=== PATIENT | female | born 1945 | race Caucasian/White ===

== ENCOUNTER → 2017-04-12 | Outpatient (CLI) | payer MEDICARE ==
[~2017-04-12] MED LIST: ALBUTEROL17 G1; ALBUTEROL17 GM INH; ALBUTEROL17 GM NEB; ALVESCO6.1 G1; AUGMENTIN PO; CEFDINIR300 MG PO; CITRACAL + D CA1 TA1 PO; DILTIAZEM 24HR120 MG PO; EXCEDRIN EXTRA1 TAB PO; HYDROCODONE/HO240 ML PO; MAIL ORDER PHARMACY; MEDROL PO; MEDROL4 MG/DOSE- PO; MUCINEX PO; NASACORT AQ16.5 GM; NASONEX17 GM; NYSTATIN5 ML; NYSTATIN5 ML PO; OMEPRAZOLE20 M1 PO; OMEPRAZOLE20 M2 PO; PRAVACHOL; PRAVASTATIN SOD20 MG PO; PREDNISONE; PREDNISONE PO; PREDNISONE5 M1 PO; PRILOSEC; PRILOSEC PO; PRINIVIL20 M1 PO; PROPRANOLOL PO; SINGULAIR PO; SYMBICORT INH; TUSSIONEX PENN473 ML PO; ZITHROMAX PO; [UNRECOGNIZED DRUG - OTHER] IH
--- NOTE | ~2017-04-12 | MY29 ---
[facility] A Service of [facility] RADIOLOGY TEXT RESULTS PATIENT: MARLEEN MURILLO LOCATION: [facility] : 43 UNIT #: [id number] AGE: [address]: Blessing Stahl MD SEX: F ORDER DR: [id number] [facility] [address] [place], [place] [address] [id number] O MR#: [id number] Acc #: [id number] NAME: MARLEEN MURILLO : 1945 SEX: F STUDY DATE/TIME: 04/12/2017 15:44 UNIT: [facility] ROOM: STUDY DESCRIPTION: MY ROXI SCREENING W/ CAD BILAT Attending Physician: Blessing Stahl M.D. Ordering Physician: Blessing Stahl M.D. Primary Care Physician: Blessing Stahl M.D. MEDICAL IMAGING REPORT This report is preliminary unless electronic signature is present EXAM Digital screening mammogram 04/12/2017 HISTORY 71-year-old woman positive family history, mother, 2 aunts. Prior bilateral breast biopsies. Annual screen. COMPARISON Mammograms date to 07/15/2007, with most recent 03/12/2015. FINDINGS Digital imaging of each breast was completed utilizing screening protocol. Review includes FDA-approved CAD device. Breast parenchyma is moderately dense with scattered parenchymal nodularity bilaterally. Subareolar duct prominence is noted and stable in each breast. Mild parenchymal dominance is stable in the upper hemisphere of the right breast. I see no suspicious mass. There are no interval occurring microcalcifications and no suspicious architectural deformity. IMPRESSION Stable benign mammogram. Annual screening recommended. Patients over the age of 40 are entered into a reminder system with target due date for the next mammogram. A result letter will also be sent to the patient. BIRADS: 2 Benign Finding Dictated by... Kenji Noel M.D. THIS IS AN ELECTRONICALLY VERIFIED REPORT [facility] A Service of [facility] RADIOLOGY TEXT RESULTS PATIENT: MARLEEN MURILLO LOCATION: [facility] : 43 UNIT #: [id number] AGE: [address]: Blessing Stahl MD SEX: F ORDER DR: Kenji Noel M.D. at 04/13/2017 8:13 AM JBB/laurence TD: 04/12/2017 23:36 JOB #: [id number] MEDICAL IMAGING REPORT Page 1 of 1 COPY
== END | disposition home or self-care (01) ==
LOC: CWCC 15:19
DX: Z12.31 Encounter for screening mammogram for malignant neoplasm of breast (principal); Z80.3 Family history of malignant neoplasm of breast
CPT/HCPCS: G0202